=== PATIENT | female | born 1975 | race Asian ===

== ENCOUNTER → 2018-08-22 | Outpatient (CLI) | payer BC | END | disposition home or self-care (01) | LOC: LAB 15:09 | PROVIDERS: ATTEND Obstetrics & Gynecology | DX: N76.0 Acute vaginitis (principal) | CPT/HCPCS: 87070 ==

== ENCOUNTER 2021-02-25 13:00 | Emergency (ER) | payer BC ==
[~2021-02-25] VITALS: Ht 157.5 cm; Wt 67.1 kg
[2021-02-25 14:31] VITALS: BP 105/71
[2021-02-25] MEDS ORDERED: KETOROLAC TROMETH 60MG/2ML VIAL IM ONE (14:45)
== END 2021-02-25 15:44 | disposition home or self-care (01) ==
LOC: ER 13:00
DX: M23.92 Unspecified internal derangement of left knee (principal); F41.8 Other specified anxiety disorders
CPT/HCPCS: 73562; 96372; 99283; J1885

== ENCOUNTER → 2021-04-22 | Outpatient (CLI) | payer BC ==
[2021-04-22 11:45] LABS: Basophils # (auto) 0 10 ^3/uL (0-0.2); Basophils % (auto) 0.8 % (0.0-2.0); Eosinophils # (auto) 0.1 10 ^3/uL (0-0.8); Hematocrit 41.1 % (36.0-46.0); Hemoglobin 13.7 g/dL (12.2-16.2); Lymphocytes # (auto) 1.1 10 ^3/uL (0.4-5.4); Mean Corpuscular Hemoglobin 30.9 pg (28.0-32.0); Mean Corpuscular Hgb Conc. 33.3 g/dL (32.0-36.0); Mean Corpuscular Volume 92.9 fL (80.0-100.0); Monocytes # (auto) 0.4 10 ^3/uL (0-1.3); Neutrophils # (auto) 4.3 10 ^3/uL (1.6-8.6); Neutrophils % (auto) 72.2 % (37.0-80.0); Nucleated Red Blood Cells % 0.2 %; Red Blood Cells 4.43 10^6/uL (4.0-5.20); Red Cell Distribution Width 15.5 % (11.8-14.3); White Blood Cell 5.9 10^3/uL (4.4-10.8)
[2021-04-22 12:37] LABS: Follicle Stimulating Hormone 12.82 IU/L (SEE BELOW)
[2021-04-22 12:52] LABS: Alcohol, Urine < 3.0 mg/dL (0-10); Amphetamine Screen, Urine NEGATIVE (NEGATIVE); Barbiturate Scree,Urine NEGATIVE (NEGATIVE); Benzodiazephine Screen, Urine NEGATIVE (NEGATIVE); Cannabinoid Screen, Urine NEGATIVE (NEGATIVE); Cocaine Screen, Urine NEGATIVE (NEGATIVE); Opiate Scree,Urine NEGATIVE (NEGATIVE); Phencyclidine Screen, Urine NEGATIVE (NEGATIVE)
== END | disposition home or self-care (01) ==
LOC: LAB 11:22
PROVIDERS: ATTEND Obstetrics & Gynecology
DX: R30.0 Dysuria (principal); N95.1 Menopausal and female climacteric states
CPT/HCPCS: 36415; 80307; 82672; 83001; 83002; 84403; 84443; 85025

== ENCOUNTER → 2023-10-14 | Outpatient (CLI) | payer BC ==
[2023-10-14 10:49] LABS: Basophils # (auto) 0 10 ^3/uL (0-0.2); Basophils % (auto) 0.8 % (0.0-2.0); Eosinophils # (auto) 0.1 10 ^3/uL (0-0.8); Eosinophils % (auto) 1.7 % (0.0-7.0); Hematocrit 40.4 % (36.0-46.0); Hemoglobin 13.6 g/dL (12.2-16.2); Lymphocytes # (auto) 1.6 10 ^3/uL (0.4-5.4); Lymphocytes % (auto) 25.5 % (10.0-50.0); Mean Corpuscular Hemoglobin 31.4 pg (28.0-32.0); Mean Corpuscular Hgb Conc. 33.7 g/dL (32.0-36.0); Monocytes # (auto) 0.4 10 ^3/uL (0-1.3); Monocytes % (auto) 5.5 % (0.0-12.0); Neutrophils # (auto) 4.3 10 ^3/uL (1.6-8.6); Neutrophils % (auto) 66.5 % (37.0-80.0); Red Blood Cells 4.35 10^6/uL (4.0-5.20); Red Cell Distribution Width 14.5 % (11.8-14.3); White Blood Cell 6.4 10^3/uL (4.4-10.8)
[2023-10-14 10:56] LABS: Urine Bacteria FEW /hpf (None Seen); Urine Blood Negative /uL (Negative); Urine Clarity Clear (Clear); Urine Color Yellow (Yellow); Urine Mucus FEW (None Seen); Urine Protein, UAD TRACE (Negative); Urine Specific Gravity 1.027 (1.001-1.035); Urine Urobilinogen Normal (Negative); Urine WBC 1 /hpf (0 - 5); Urine pH 6.5 (5.0-9.0)
[2023-10-14 11:09] LABS: Alanine Aminotransferase 16 U/L (7-40); Albumin 4.2 g/dL (3.2-4.8); Alkaline Phosphatase 92 U/L (46-116); Anion Gap 4 (5-15); Aspartate Aminotransferase 12 U/L (13-40); Blood Urea Nitrogen 12 mg/dL (9-23); Calcium 9.3 mg/dL (8.5-10.1); Carbon Dioxide 26 mmol/L (20-30); Chloride 107 mmol/L (98-107); Cholesterol 184 mg/dL (< 200); Glucose 90 mg/dL (74-106); HDL Cholesterol 42 mg/dL (40-59); LDL Cholesterol 123 mg/dL (< 100); Potassium 4.1 mmol/L (3.5-5.1); Sodium 137 mmol/L (136-145); Triglycerides 142 mg/dL (< 150)
[2023-10-14 11:10] LABS: Bilirubin, Total 0.5 mg/dL (0.2-1.0)
[2023-10-14 11:11] LABS: BUN/Creatinine Ratio 16.7 (10.0-20.0)
[2023-10-14 11:23] LABS: Erythrocyte Sedimentation Rate 25 mm/hr (0-20)
[2023-10-14 11:44] LABS: Uric Acid 4.3 mg/dL (3.1-7.8)
[2023-10-15 08:06] LABS: Complement C3 181 mg/dL (82-167); Rheumatoid Arthritis Factor <10.0 IU/mL (<14.0); Thyroid Peroxidase (TPO) Ab 9 IU/mL (0-34)
[2023-10-15 12:06] LABS: Anti-Nuclear Antibody Direct Negative (Negative); Anti-dsDNA Antibody <1 IU/mL (0-9); Antiscleroderma-70 Antibody <0.2 AI (0.0-0.9); RNP Antibody <0.2 AI (0.0-0.9); Sjogren's Anti-SS-A Antibody <0.2 AI (0.0-0.9); Sjogren's Anti-SS-B Antibody <0.2 AI (0.0-0.9); Smith Antibody <0.2 AI (0.0-0.9)
[2023-10-15 21:06] LABS: Actin (Smooth Muscle) Antibody 16 Units (0-19); Mitochondrial (M2) Antibody <20.0 Units (0.0-20.0)
[2023-10-16 14:06] LABS: Antiparietal Cell Antibody 1.6 Units (0.0-20.0)
[2023-10-17 13:07] LABS: Anti-Striated Muscle Antibody Negative (Neg:<1:100)
== END | disposition home or self-care (01) ==
LOC: LAB 10:23
PROVIDERS: ATTEND Internal Medicine
DX: Z12.11 Encounter for screening for malignant neoplasm of colon (principal); Z00.00 Encounter for general adult medical examination without abnormal findings; M25.572 Pain in left ankle and joints of left foot
CPT/HCPCS: 36415; 80053; 80061; 81001; 83036; 84550; 85025; 85652; 86160; 86225; 86235; 86376; 86431

== ENCOUNTER 2024-01-15 11:13 | Emergency (ER) | payer BC ==
[~2024-01-15] VITALS: Ht 160 cm; Wt 78.7 kg
[2024-01-15] MEDS: KETOROLAC TROMETH 60MG/2ML VIAL IM ONE (11:54)
[2024-01-15] MEDS ORDERED: METH4PAK PO (13:03)
[2024-01-15] MEDS ORDERED: TRAM50TA2 PO (13:03)
[2024-01-15 15:00] VITALS: BP 132/82; PULSE 98; RESP 15; TEMP 97; O2SAT 99
== END 2024-01-15 15:36 | disposition home or self-care (01) ==
LOC: ER 11:13
DX: M54.42 Lumbago with sciatica, left side (principal); M79.672 Pain in left foot
CPT/HCPCS: 72131; 96372; 99285; J1885